=== PATIENT | female | born 1970 | race American Indian/Alaskan Native ===

== ENCOUNTER 2017-12-06 09:31 | Outpatient (CLI) | payer OTHER | END 2017-12-06 09:32 | disposition home or self-care (01) | LOC: PF 09:31 | PROVIDERS: ATTEND Internal Medicine | DX: Z02.71 Encounter for disability determination (principal); J44.9 Chronic obstructive pulmonary disease, unspecified; M19.90 Unspecified osteoarthritis, unspecified site; D64.9 Anemia, unspecified; F41.1 Generalized anxiety disorder; I10 Essential (primary) hypertension; Z87.891 Personal history of nicotine dependence | CPT/HCPCS: 94010 ==

== ENCOUNTER 2017-12-06 10:27 | Emergency (ER) | payer SELFPAY ==
[2017-12-06 10:36] VITALS: BP 128/77
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
== END 2017-12-06 11:42 | disposition left against medical advice (07) ==
LOC: ED 10:27
DX: F41.9 Anxiety disorder, unspecified (principal); Z53.21 Procedure and treatment not carried out due to patient leaving prior to being seen by health care provider